=== PATIENT | male | born 2000 | race Caucasian/White ===

== ENCOUNTER 2021-01-03 11:06 | Emergency (ER) | payer MEDICAID ==
[~2021-01-03] VITALS: Ht 177.8 cm; Wt 77.0 kg
[2021-01-03] MEDS ORDERED: HALOPERIDOL LACTATE 5MG/ML VIAL IM STA (11:56)
[2021-01-03] MEDS ORDERED: DIPHENHYDRAMINE 50MG/ML VIAL IM STA (11:56)
[2021-01-03] MEDS ORDERED: LORAZEPAM 2MG/ML CPJ IM STA (11:56)
[2021-01-03 12:06] LABS: HEMOGLOBIN. 11.9 g/dL (14.0-18.0); MEAN CORPUSCULAR HEMOGLOBIN 28.8 pg (28.0-32.0); MEAN CORPUSCULAR VOLUME 84.6 fL (80.0-94.0); MEAN PLATELET VOLUME 7.9 fl (7.4-10.4); PLATELET 325 x1000/uL (130-400); RED BLOOD CELL COUNT 4.13 mill/uL (4.7-6.1); RED CELL DISTRIBUTION WIDTH 13.8 % (11.6-14.6)
[2021-01-03 12:16] LABS: CHLORIDE 109 mEq/L (98-107)
[2021-01-03 12:20] LABS: ETHANOL BLOOD < 10 mg/dL
[2021-01-03 12:49] LABS: PLATELET ESTIMATE NORMAL
[2021-01-04 05:55] VITALS: BP 122/84
[2021-01-04 08:30] LABS: CLARITY URINE CLEAR (CLEAR); COLOR URINE DARK YELLOW (YELLOW); KETONES URINE TRACE (NEGATIVE); LEUKOCYTE ESTERASE URINE NEGATIVE (NEGATIVE); NITRITE URINE NEGATIVE (NEGATIVE); OCCULT BLOOD URINE NEGATIVE (NEGATIVE); PH URINE 6.5 (4.5-8.0); PROTEIN URINE NEGATIVE (NEGATIVE); SPECIFIC GRAVITY URINE 1.034 (1.005-1.030)
[2021-01-04 08:48] LABS: *AMPHETAMINES SCREEN URINE PRESUMTIVE POSITIVE (NEGATIVE)
[2021-01-04 08:49] LABS: *BARBITURATES SCREEN URINE NEGATIVE (NEGATIVE); *BENZODIAZEPINES SCREEN URINE NEGATIVE (NEGATIVE); *COCAINE SCREEN URINE NEGATIVE (NEGATIVE); METHADONE URINE SCREEN NEGATIVE (NEGATIVE); OPIATES URINE SCREEN NEGATIVE (NEGATIVE); PHENCYCLIDINE URINE SCREEN NEGATIVE (NEGATIVE)
[2021-01-04 08:50] LABS: CANNABINOID URINE SCREEN NEGATIVE (NEGATIVE)
== END 2021-01-04 12:45 | disposition home or self-care (01) ==
LOC: ER 11:06
DX: F29 Unspecified psychosis not due to a substance or known physiological condition (principal); R45.1 Restlessness and agitation; F91.8 Other conduct disorders; F20.9 Schizophrenia, unspecified; D64.9 Anemia, unspecified; Z78.1 Physical restraint status
CPT/HCPCS: 36415; 71045; 80053; 80305; 80307; 80320; 80329; 81003; 82140; 84443; 85025; 93005; 96372; 99285; J1200; J1630; J2060; G0480